=== PATIENT | female | born 2000 | race Caucasian/White ===

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

== ENCOUNTER 2023-05-11 09:12 | Emergency (ER) | payer SELFPAY ==
[~2023-05-11] VITALS: Ht 172.7 cm; Wt 86.2 kg
[2023-05-11 09:29] VITALS: BP 127/88; PULSE 105; RESP 18; TEMP 101; O2SAT 97
[2023-05-11] MEDS ORDERED: IBUPROFEN 800 MG TAB PO ONE (09:35)
[2023-05-11 09:52] LABS: FLU A ANTIGEN negative (NEGATIVE); FLU B ANTIGEN NEGATIVE (NEGATIVE)
[2023-05-11] MEDS ORDERED: AMOX500C25 PO (10:41)
[2023-05-11] MEDS ORDERED: IBUP-2213 PO (10:41)
[2023-05-11] MEDS ORDERED: DEXAMETHASONE 4 MG/ML VIAL PO ONE (10:45)
== END 2023-05-11 10:54 | disposition home or self-care (01) ==
LOC: MED 09:12
DX: J02.0 Streptococcal pharyngitis (principal); J45.909 Unspecified asthma, uncomplicated; Z79.899 Other long term (current) drug therapy; Z20.822 Contact with and (suspected) exposure to COVID-19
CPT/HCPCS: 99283